=== PATIENT | female | born 1950 | race Caucasian/White ===

== ENCOUNTER 2018-12-21 07:44 | Inpatient (IN) ==
--- NOTE | 2018-12-21 08:39 | ED ---
HPI General Chief complaint: Weakness Stated complaint: weakness/loss of appetite Time Seen by Provider: 12/21/18 08:29 Source: patient Mode of arrival: ambulatory Limitations: no limitations History of Present Illness HPI narrative: This 68-year-old female is complaining of weakness and poor appetite. She was here on Monday with the same complaint. Her symptoms have been going on for at least 2 weeks. He bites and she is full and cannot eat anymore. She has had a 10 pound weight loss. She is not having pain. She does not have dysphasia. She was treated from 1979 until 2000 for breast cancer. She had 4 weeks of radiation and 4 courses of chemo. She believes she has been in remission since 2000. Was here on Monday she had a workup which included a TSH which was normal. On her laboratory studies her albumin was 2.2 and her calcium was 10.9. He had a CT scan of the head which showed multiple diffuse subcutaneous nodules around the scalp and numerous low-density lesions in the diploic space of the calvarium which could represent venous lakes versus metastatic disease. She had a CT scan of the abdomen and pelvis. She was noted to have small bilateral pleural effusions and osteolytic lesions in the left femur and left iliac bone suggestive of metastatic disease. She was given a prescription for Megace but she did not get it filled. Her symptoms have worsened. She is feeling lightheaded Related Data Home Medications Medication Instructions Recorded Confirmed atorvastatin 10 mg PO HS 12/17/18 12/21/18 Allergies Allergy/AdvReac Type Severity Reaction Status Date / Time niacin Allergy Intermediate Hives Verified 12/21/18 08:16 penicillin G Allergy Intermediate Hives Verified 12/21/18 08:16 Fish Containing Products Allergy Unknown Unknown Verified 12/21/18 08:16 Review of Systems Constitutional Reports anorexia, Reports difficulty sleeping, Reports fatigue, Reports poor appetite, Reports weakness and Reports weight loss PMF Medical History Medical History Breast cancer (Acute) High cholesterol (Acute) Surgical History Surgical History H/O mastectomy (Acute) Social History Social History Substance History: No History of Abuse Second Hand Smoke Exposure: No Smoking Status: Never smoker How Often Do You Have a Drink Containing Alcohol: Never Recent Travel in [facility] within the Last 8 Weeks: No Recent Out of Country Travel within the Last 8 Weeks: No Immunization History Tetanus Immunization: Unsure Exam Narrative Exam Narrative: GENERAL: Thin female. She arrives with a heart rate of 118 SKIN: Focused skin assessment warm/dry. There are surgical scars on the left breast. The nipple is absent HEAD: Atraumatic. Normocephalic. EYES: Pupils equal and round. No scleral icterus. No injection or drainage. ENT: No nasal bleeding or discharge. Mucous membranes dry NECK: Trachea midline. No JVD. CARDIOVASCULAR: Regular rate and rhythm. No murmur appreciated. RESPIRATORY: No accessory muscle use. Clear to auscultation. Breath sounds equal bilaterally. GASTROINTESTINAL: Abdomen soft, non-tender, nondistended. Hepatic and splenic margins not palpable. MUSCULOSKELETAL: No obvious deformities. No clubbing. No cyanosis. No edema. No tenderness no discernible swelling of the left hip or the left pelvis NEUROLOGICAL: Awake and alert. No obvious cranial nerve deficits. Motor grossly within normal limits. Normal speech. PSYCHIATRIC: Appropriate mood and affect; insight and judgment normal. Course Initial Documented Vital Signs Temperature 97.8 F 12/21/18 07:59 Pulse Rate 118 H 12/21/18 07:59 Respiratory Rate 14 12/21/18 07:59 Blood Pressure 104/61 12/21/18 07:59 Pulse Oximetry 96 12/21/18 07:59 Last Documented Vital Signs Temperature 97.8 F 12/21/18 07:59 Pulse Rate 84 12/21/18 10:10 Respiratory Rate 16 12/21/18 10:10 Blood Pressure 116/63 12/21/18 10:10 Pulse Oximetry 94 L 12/21/18 10:10 Medical Decision Making [facility] Narrative Medical decision making narrative: Patient was here Monday with similar symptoms. At that time she had CT of the head which raise the possibility of metastatic disease to this skull. She also had a CT of the abdomen and pelvis which was concerning for possible metastatic disease of the femur and pelvis. Her calcium level today is 10.7 with an albumin of 1.9. I have initiated intravenous fluids. Protein corrected calcium is 12.4 Medical Screen Exam Complete: Yes Emergency Medical Condition: Yes Differential Diagnosis Differential Diagnosis: Differential includes dehydration, electrolyte imbalance , hypercalcemia Lab Data Result diagrams: 12/21/18 08:50 12/21/18 08:50 Lab Results 12/21/18 12/21/18 12/21/18 Range/Units 08:50 08:50 08:50 CBC w Diff Auto diff final WBC 7.5 (4.0-11.0) th/mm3 RBC 3.80 L (4.00-5.30) mil/mm3 Hgb 11.0 L (11.6-15.3) gm/dL Hct 33.1 L (35.0-46.0) % MCV 87.0 (80.0-100.0) fL MCH 29.0 (27.0-34.0) pg MCHC 33.3 (32.0-36.0) % RDW 13.4 (11.6-17.2) % Plt Count 225 (150-450) th/mm3 MPV 8.4 (7.0-11.0) fL Neut % (Auto) 86.3 H (16.0-70.0) % Lymph % (Auto) 5.0 L (9.0-44.0) % [place] % (Auto) 6.4 (0.0-8.0) % Eos % (Auto) 0.6 (0.0-4.0) % Baso % (Auto) 1.7 (0.0-2.0) % Neut # (Auto) 6.5 (1.8-7.7) th/mm3 Lymph # (Auto) 0.4 L (1.0-4.8) th/mm3 [place] # (Auto) 0.5 (0.0-0.9) th/mm3 Eos # (Auto) 0.0 (0.0-0.4) th/mm3 Baso # (Auto) 0.1 (0.0-0.2) th/mm3 WBC Differential . Differential Comment . Sodium 136 (136-145) meq/L Potassium 3.3 L (3.5-5.1) meq/L Chloride 95 L (98-107) meq/L Carbon Dioxide 34.0 H (21.0-32.0) meq/L Anion Gap 7 (5-15) meq/L BUN 14 (7-18) mg/dL Creatinine 0.56 (0.50-1.00) mg/dL Estimated GFR Greater than 89 (>89) mL/min Random Glucose 102 (74-106) mg/dL Calcium 10.7 H 10.7 H (8.5-10.1) mg/dL Calcium Adj for Albumin 12.4 H* (8.5-10.1) mg/dL Magnesium 2.1 (1.5-2.5) mg/dL Total Bilirubin 0.8 (0.2-1.0) mg/dL AST 35 (15-37) U/L ALT 18 (10-53) U/L Alkaline Phosphatase 142 H (45-117) U/L Troponin I 0.02 (0.02-0.05) ng/mL Total Protein 5.6 L D (6.4-8.2) g/dL Albumin 1.9 L 1.9 L (3.4-5.0) g/dL Urine Color (Yellw/Straw) Urine Clarity (Clear) Urine pH (5.0-8.5) Ur Specific [place] (1.002-1.035) Urine Protein (Neg-Trace) mg/dL Urine Glucose (UA) (Negative) mg/dL Urine Ketones (Negative) mg/dL Urine Occult Blood (Negative) Urine Nitrate (Negative) Urine Bilirubin (Negative) Urine Urobilinogen (Less than 2) mg/dL Ur Leukocyte Esterase (Negative) Urine RBC (0-3) /hpf Ur Squamous Epith Cells (0-5) /hpf Amorphous Sediment (None) /hpf Micro UA Comment Ur Microscopic Review Urine Culture Comments 12/21/18 Range/Units 09:35 CBC w Diff WBC (4.0-11.0) th/mm3 RBC (4.00-5.30) mil/mm3 Hgb (11.6-15.3) gm/dL Hct (35.0-46.0) % MCV (80.0-100.0) fL MCH (27.0-34.0) pg MCHC (32.0-36.0) % RDW (11.6-17.2) % Plt Count (150-450) th/mm3 MPV (7.0-11.0) fL Neut % (Auto) (16.0-70.0) % Lymph % (Auto) (9.0-44.0) % [place] % (Auto) (0.0-8.0) % Eos % (Auto) (0.0-4.0) % Baso % (Auto) (0.0-2.0) % Neut # (Auto) (1.8-7.7) th/mm3 Lymph # (Auto) (1.0-4.8) th/mm3 [place] # (Auto) (0.0-0.9) th/mm3 Eos # (Auto) (0.0-0.4) th/mm3 Baso # (Auto) (0.0-0.2) th/mm3 WBC Differential Differential Comment Sodium (136-145) meq/L Potassium (3.5-5.1) meq/L Chloride (98-107) meq/L Carbon Dioxide (21.0-32.0) meq/L Anion Gap (5-15) meq/L BUN (7-18) mg/dL Creatinine (0.50-1.00) mg/dL Estimated GFR (>89) mL/min Random Glucose (74-106) mg/dL Calcium (8.5-10.1) mg/dL Calcium Adj for Albumin (8.5-10.1) mg/dL Magnesium (1.5-2.5) mg/dL Total Bilirubin (0.2-1.0) mg/dL AST (15-37) U/L ALT (10-53) U/L Alkaline Phosphatase (45-117) U/L Troponin I (0.02-0.05) ng/mL Total Protein (6.4-8.2) g/dL Albumin (3.4-5.0) g/dL Urine Color Yellow (Yellw/Straw) Urine Clarity Clear (Clear) Urine pH 6.0 (5.0-8.5) Ur Specific [place] 1.025 (1.002-1.035) Urine Protein Negative (Neg-Trace) mg/dL Urine Glucose (UA) Negative (Negative) mg/dL Urine Ketones 15 H (Negative) mg/dL Urine Occult Blood Negative (Negative) Urine Nitrate Negative (Negative) Urine Bilirubin Small H (Negative) Urine Urobilinogen 4.0 H (Less than 2) mg/dL Ur Leukocyte Esterase Negative (Negative) Urine RBC 0-3 (0-3) /hpf Ur Squamous Epith Cells 0-5 (0-5) /hpf Amorphous Sediment Few H (None) /hpf Micro UA Comment Cath-culture not ind Ur Microscopic Review Microscopic reviewed Urine Culture Comments Cath-cult not ind Imaging Data Radiologist's impression: Chest X-Ray 12/21/18 09:54 CONCLUSION: No new or significant changes with the overall appearance of the heart or lungs compared to the prior study. Discharge Plan Discharge Disposition Patient Disposition: ED Admit(ED Internal Use Only) Discharge Condition Condition: Fair Discharge Order Discharge Orders: ED Use Only Admit Order (Routine); Ordered 12/21/18 Ordered By: Jared Felix Discharge Details Diagnosis: Hypercalcemia Physicians Team ED Provider: Jared Felix Primary Care Provider: UNKNOWN, Attending Provider: Kingsley Goff Other Providers: Laurita Lares Discharge Interventions Interventions: Vital Signs Last Done: 12/21/18 10:10 ED Discharge Assessment Last Done: 12/21/18 10:45 Status ED Status: Admitted Patient
[2018-12-21] MEDS ORDERED: Sod Chloride 0.9% Inj 1,000 ML IV.CONT SCH (08:45)
[2018-12-21 09:06] LABS: Baso # (Auto) 0.1 th/mm3 (0.0-0.2); Baso % (Auto) 1.7 % (0.0-2.0); Eos % (Auto) 0.6 % (0.0-4.0); Hematocrit 33.1 % (35.0-46.0); Lymph # (Auto) 0.4 th/mm3 (1.0-4.8); Mean Corpuscular HGB Conc 33.3 % (32.0-36.0); Mean Platelet Volume 8.4 fL (7.0-11.0); Mono # (Auto) 0.5 th/mm3 (0.0-0.9); Mono % (Auto) 6.4 % (0.0-8.0); Neut # (Auto) 6.5 th/mm3 (1.8-7.7); Neut % (Auto) 86.3 % (16.0-70.0); Platelet Count 225 th/mm3 (150-450); Red Cell Distribution Width 13.4 % (11.6-17.2); White Blood Count 7.5 th/mm3 (4.0-11.0)
[2018-12-21 09:07] LABS: Chloride 95 meq/L (98-107); Potassium 3.3 meq/L (3.5-5.1); Sodium 136 meq/L (136-145)
[2018-12-21 09:10] LABS: Calcium 10.7 mg/dL (8.5-10.1)
[2018-12-21 09:11] LABS: Albumin 1.9 g/dL (3.4-5.0); Anion Gap 7 meq/L (5-15); Blood Urea Nitrogen 14 mg/dL (7-18); Glucose,Random 102 mg/dL (74-106); Magnesium 2.1 mg/dL (1.5-2.5)
[2018-12-21 09:14] LABS: Alanine Aminotransferase 18 U/L (10-53); Aspartate Aminotransferase 35 U/L (15-37); Glomerular Filtration Rate Greater Than 89 mL/min (>89)
[2018-12-21 09:16] LABS: Total Protein 5.6 g/dL (6.4-8.2)
[2018-12-21 09:17] LABS: Alkaline Phosphatase 142 U/L (45-117)
[2018-12-21 09:19] LABS: Troponin I 0.02 ng/mL (0.02-0.05)
[2018-12-21 09:43] LABS: Bilirubin,Urine Small (Negative); Glucose,Urine (UA) Negative (Negative); Leukocyte Esterase,Urine Negative (Negative); Nitrite,Urine Negative (Negative); Specific Gravity,Urine 1.025 (1.002-1.035)
[2018-12-21 09:48] LABS: Clarity,Urine Clear (Clear); Color,Urine Yellow (Yellw/Straw)
[2018-12-21 09:50] LABS: Amorphous Sediment,Urine Few /hpf; RBC,Urine 0-3 /hpf (0-3); Squamous Epithelial Cell,Urine 0-5 /hpf (0-5)
[2018-12-21 10:07] LABS: Albumin 1.9 g/dL (3.4-5.0); Calcium 10.7 mg/dL (8.5-10.1)
[2018-12-21 10:08] LABS: Calcium-Albumin Corrected 12.4 mg/dL (8.5-10.1)
[2018-12-21] MEDS: Sod Chloride 0.9% Inj 1,000 ML IV.CONT SCH ×4 (10:10→20:53)
--- NOTE | 2018-12-21 10:16 | XR ---
EXAM DATE: 12/21/2018 10:11 AM EST AGE/SEX: 68 years / Female INDICATIONS: Loss of appetite, general weakness, light headedness, and weight loss. CLINICAL DATA: This is the patient's initial encounter. Patient reports that signs and symptoms have been present for 2 weeks and indicates a pain score of 0/10. MEDICAL/SURGICAL HISTORY: Carcinoma, breast. Pleural effusions. Mastectomy, left. COMPARISON: [facility], CHEST 2V AP&LAT, 12/17/2018. . FINDINGS: There has been no new or significant changes with the overall appearance of the heart or lungs compar ed to the prior exam. There continue to be stable chronic changes in both upper lungs. No new or acut e infiltrates are demonstrated. There continues to be hyperaeration of both lung yan. No pleural e ffusions. Surgical clips in the left axillary area. CONCLUSION: No new or significant changes with the overall appearance of the heart or lungs compared to the prior study. Electronically signed by: Ramy Moffett MD Board Certified Radiologist 12/21/2018 10:14 AM EST
[2018-12-21] MEDS ORDERED: Acetaminophen 325 MG Tablet PO PRN (10:43)
--- NOTE | 2018-12-21 12:38 | P.HPIM ---
History of Present Illness Primary Care Physician: UNKNOWN Chief Complaint: Weakness History of Present Illness: Mrs. Schmid is a 68-year-old female. She has come into the hospital secondary to an acute onset of weakness. Previously she had visited the hospital secondary to difficulty sleeping and weight loss. Lytic lesions were seen on imaging which are worrisome for metastatic disease. She has a prior history of breast cancer so recurrence of breast cancer with metastasis would be a primary concern. She describes weakness as lower extremity weakness. She was unable to hold her own weight up due to her muscle weakness and dysfunction. She denies any diarrhea. She denies fevers. She denies vomiting. No abdominal cramping. No complaints of joint pains or bone pain. Thus far no cardiac arrhythmia. No other complaints today. Inpatient Certification Inpatient Certification: I certify that the inpatient services were ordered in accordance with Medicare regulations governing the order. This includes certification that hospital inpatient services are reasonable and necessary and in the case of services not specified as inpatient-only under 42 CFR 419.22(n), that they are appropriately provided as inpatient services in accordance to with the 2-midnight benchmark under 43 CFR 412.3(e) Estimated Total Length of Stay (Days): 4 Plans for Post Hospital Care: Home Review of Systems Constitutional: No fevers, no chills no night sweats, no fatigue, weakness Eyes: No eye pain, no blurry vision, no loss of vision ENT: No sore throat, no ear pain, no rhinorrhea Cardiovascular: No chest pain, no tachycardia, no palpitations, no syncope Respiratory: No wheezing, no cough, no shortness of breath Gastrointestinal: No abdominal pain, no black tarry stools, no bright red blood per rectum, no vomiting, no diarrhea Musculoskeletal: No joint pain, no muscle cramps, no stiffness Integumentary: No rash, no ulcers, no drainage Neurologic: No sensory loss, no loss of motor function, no dizziness Psychiatric: No behavioral changes, no hallucinations, no suicidal ideations [facility] Medical History Medical History Breast cancer (Acute) High cholesterol (Acute) Surgical History Surgical History H/O mastectomy (Acute) Family History Family History Other Osteoarthritis Social History Social History Substance History: No History of Abuse Second Hand Smoke Exposure: No Smoking Status: Never smoker How Often Do You Have a Drink Containing Alcohol: Never Recent Travel in [facility] within the Last 8 Weeks: No Recent Out of Country Travel within the Last 8 Weeks: No Immunization History Tetanus Immunization: Unsure Medications and Allergies Allergies Allergy/AdvReac Type Severity Reaction Status Date / Time niacin Allergy Intermediate Hives Verified 12/21/18 08:16 penicillin G Allergy Intermediate Hives Verified 12/21/18 08:16 Fish Containing Products Allergy Unknown Unknown Verified 12/21/18 08:16 Home Medications Medication Instructions Recorded Confirmed Type atorvastatin 10 mg PO HS 12/17/18 12/21/18 History Active Medications: Active Medications Acetaminophen (Tylenol) 650 mg PO Q4H PRN PRN Reason: Temp > 100.4 Hydrocodone Bitart/Acetaminophen ([place] 10/325) 1 tab PO Q4H PRN PRN Reason: Pain 7 to 10 Hydrocodone Bitart/Acetaminophen ([place] 5/325) 1 tab PO Q4H PRN PRN Reason: Pain 3 to 6 Al Hydroxide/Mg Hydroxide (Milk Of Magnesia Liq) 30 ml PO Q12H PRN PRN Reason: Mild Constipation Sodium Chloride (Ns Inj) 1,000 mls @ 400 mls/hr IV.CONT .Q2H30M JESSICA Last Infusion: 12/21/18 09:45 Dose: Infused Sodium Chloride (Ns Inj) 1,000 mls @ 250 mls/hr IV.CONT .Q4H JESSICA Last Admin: 12/21/18 10:10 Dose: 250 mls/hr Sodium Chloride (Ns Inj) 1,000 mls @ 100 mls/hr IV.CONT .Q10H JESSICA Last Admin: 12/21/18 12:34 Dose: 100 mls/hr Ondansetron HCl (Zofran Inj) 4 mg IV.PUSH Q6H PRN PRN Reason: NAUSEA OR VOMITING Sodium Chloride (Ns Flush) 2 ml IV.FLUSH PRN PRN PRN Reason: FLUSH AFTER USING IV ACCESS Sodium Chloride (Ns Flush) 2 ml IV.FLUSH BID JESSICA Sodium Chloride (Ns Flush) 2 ml IV.FLUSH PRN PRN PRN Reason: FLUSH AFTER USING IV ACCESS Physical Exam Vital signs: Vital Signs 12/21/18 07:59 12/21/18 08:50 12/21/18 10:10 Temperature 97.8 F Pulse Rate 118 H 78 84 Respiratory Rate 14 16 Blood Pressure 104/61 116/63 Pulse Oximetry 96 95 94 L Intake & Output 12/20/18 12/21/18 12/21/18 18:59 06:59 18:59 Intake Total 1000 / 1000 Balance 1000 / 1000 Weight 57.7 kg Intake: IV 1000 / 1000 NS Inj 1,000 ML @ 400 mls/hr IV 1000 / 1000 .CONT .Q2H30M JESSICA Rx#: [id number] Narrative: GENERAL: NAD, A&Ox3 HEAD: Normocephalic. NECK: Supple, trachea midline. No lymphadenopathy. EYES: No scleral icterus. No injection or drainage. CARDIOVASCULAR: Regular rate and rhythm without murmurs, gallops, or rubs. RESPIRATORY: Breath sounds equal bilaterally. No accessory muscle use. GASTROINTESTINAL: Abdomen soft, non-tender, nondistended. MUSCULOSKELETAL: No cyanosis, or edema. SKIN: Warm and dry. Nodularity at scalp. NEURO: No focal neurological deficits. Urinary Catheter Management Straight: Cath placed during this visit: yes Reason for continuing: Not indwelling catheter Insertion date: 12/21/18 Insertion time: 09:35 Results Labs CBC & Chem 7: 12/21/18 08:50 12/21/18 08:50 Imaging Impressions Chest X-Ray 12/21/18 09:54 CONCLUSION: No new or significant changes with the overall appearance of the heart or lungs compared to the prior study. Caprini VTE Risk Assessment Caprini VTE Risk Assessment: No/Low Risk (score <= 1) Caprini Risk Assessment Model: Point Value = 1 Point Value = 2 Point Value = 3 Point Value = 5 Age 41-60 Minor surgery BMI > 25 kg/m2 Swollen legs Varicose veins or History of unexplained or recurrent spontaneous Oral contraceptives or hormone replacement Sepsis (< 1 month) Serious lung disease, including pneumonia (< 1 month) Abnormal pulmonary function Acute myocardial infarction Congestive heart failure (< 1 month) History of inflammatory bowel disease Medical patient at bed rest Age 61-74 Arthroscopic surgery Major open surgery (> 45 min) Laparoscopic surgery (> 45 min) Malignancy Confined to bed (> 72 hours) Immobilizing plaster cast Central venous access Age >= 75 History of VTE Family history of VTE Factor V Leiden Prothrombin [id number] Lupus anticoagulant Anticardiolipin antibodies Elevated serum homocysteine Heparin-induced thrombocytopenia Other congenital or acquired thrombophilia Stroke (< 1 month) Elective arthroplasty Hip, pelvis, or leg fracture Acute spinal cord injury (< 1 month) Prophylaxis Regimen: Total Risk Factor Score Risk Level Prophylaxis Regimen 0-1 Low Early ambulation 2 Moderate Order ONE of the following: *Sequential Compression Device (SCD) *Heparin 5000 units SQ BID 3-4 Higher Order ONE of the following medications: *Heparin 5000 units SQ TID *Enoxaparin/Lovenox 40 mg SQ daily (WT < 150 kg, CrCl > 30 mL/min) *Enoxaparin/Lovenox 30 mg SQ daily (WT < 150 kg, CrCl > 10-29 mL/min) *Enoxaparin/Lovenox 30 mg SQ BID (WT < 150 kg, CrCl > 30 mL/min) AND/OR *Sequential Compression Device (SCD) 5 or more Highest Order ONE of the following medications: *Heparin 5000 units SQ TID (Preferred with Epidurals) *Enoxaparin/Lovenox 40 mg SQ daily (WT < 150 kg, CrCl > 30 mL/min) *Enoxaparin/Lovenox 30 mg SQ daily (WT < 150 kg, CrCl > 10-29 mL/min) *Enoxaparin/Lovenox 30 mg SQ BID (WT < 150 kg, CrCl > 30 mL/min) AND *Sequential Compression Device (SCD) Assessment and Plan Plan 68-year-old female admitted secondary to weakness with finding of severe hypercalcemia Severe hypercalcemia Suspected to be related to metastatic disease Check PTH level IV hydration Follow calcium levels Follow on telemetry Lytic lesions pelvis Lytic lesion at left femur Lytic lesions of scalp History of breast cancer New concerns for recurrence of breast cancer with metastasis Patient was to follow-up with oncology as an outpatient Further workup needed Oncology consult Hyperlipidemia Hold present treatment Follow as an outpatient DVT prophylaxis SCDs H&P: Quality VTE Deep Vein Thrombosis/Pulmonary Embolism Present on Admission: No
--- NOTE | 2018-12-21 14:53 | ECG ---
Date Performed: 12/21/2018 Time Performed: 10:08:28 PTAGE: 68 years EKG: Sinus rhythm NORMAL ECG Since the PREVIOUS TRACING , no significant change noted PREVIOUS TRACIN12/17/2018 08.17 DOCTOR: Mayela Cruz Interpretating Date/Time 12/21/2018 14:46:08
--- NOTE | 2018-12-21 20:00 | CT ---
EXAM DATE: 12/21/2018 7:47 PM EST AGE/SEX: 68 years / Female INDICATIONS: Loss of appetite x 2 weeks with weight loss. Nodules on left chest wall and right breas t. Evaluate for mass. CLINICAL DATA: This is the patient's initial encounter. Patient reports that signs and symptoms have been present for 2 weeks and indicates a pain score of 0/10. MEDICAL/SURGICAL HISTORY: Carcinoma, breast. . Mastectomy. RADIATION DOSE: 6.44 CTDI (mGy) COMPARISON: [facility], CHEST 1V SINGLE AP, 12/21/2018. . TECHNIQUE: Multiple contiguous axial images were obtained through the chest without contrast. Image s were obtained in suspended respiration using multiple row detector helical technique. Using automa yossi exposure control and adjustment of the mA and/or kV according to patient size, radiation dose was kept as low as reasonably achievable to obtain optimal diagnostic quality images. DICOM format imag e data is available electronically for review and comparison. FINDINGS: Approximate 2.4 cm right upper lobe mass is present concerning for underlying malignancy. There is a tiny 5 mm nodule left upper lobe anteriorly nonspecific could be benign. Tiny bilateral pleural effus ions are seen. No appreciable pathological adenopathy is seen within the mediastinum. CONCLUSION: Right upper lobe mass concerning for malignancy and the left upper lobe nodule is nonspe cific. Electronically signed by: Marco Chaves MD Board Certified Radiologist 12/21/2018 7:58 PM EST
--- NOTE | 2018-12-21 20:43 | MB ---
cc: Laurita Lares MD, Daniel C MD DATE: 12/21/2018 REFERRING PHYSICIAN: Kingsley Goff MD CHIEF COMPLAINT: Dr. Goff requests a consultation for Mrs. Schmid with hypercalcemia suspicious for metastatic breast cancer. HISTORY OF PRESENT ILLNESS: Ms. Schmid is a 68-year-old woman, well known patient to Dr. Matheus Kebede. She was initially diagnosed and treated for her high risk left breast cancer in a [facility]. She came down and followed up with Dr. Kebede at the [facility] and subsequently followed Dr. Kebede at his private practice. She is discharged from Dr. Kebede's clinic with no evidence of recurrent disease after 10 years. She was in her usual state of health when several months ago, developed progressive symptoms of weakness, decreased appetite, and weight loss. She denies any chest pain or shortness of breath. She denies any back pain. No headaches. No vision changes. She has no fevers, chills, night sweats. She has had evaluation on an ER visit on 12/17/2018. CT scan of the abdomen and pelvis shows osteolytic lesions in the left occipital femur and left iliac bone suggestive of bony metastatic disease. She had bilateral pleural effusion. CT scan of the head had numerous low density lesions of the calvarium. There is diffuse multiple subcutaneous nodules about the scalp. Her last screening mammogram of the residual right breast on 08/16/2017 was negative. Her bone density from 08/24/2015 was normal. She comes into the emergency room with feeling of weakness and poor appetite. Laboratory evaluation shows a white blood cell count of 7.5, hemoglobin 11.0, platelet count of 225. Renal function is normal. Calcium is 10.7 and calcium adjusted for albumin of 12.4. Her albumin is 1.9. PTH intact is low at 6.4. Hypercalcemia of malignancy is suspected. PAST MEDICAL HISTORY: ER positive left breast cancer, hypercholesterolemia, hypercalcemia, unintentional weight loss. PAST SURGICAL HISTORY: Left mastectomy. FAMILY HISTORY: Mother of Alzheimer's age 76. SOCIAL HISTORY: She is a never smoker. Denies any alcohol or illicit drug use. She is and lives with her , who is in good health. ALLERGIES: NIACIN, PENICILLIN, AND FISH-CONTAINING PRODUCTS. MEDICATIONS: 1. Tylenol p.r.n. 2. [place] p.r.n. 3. Zofran p.r.n. PHYSICAL EXAMINATION: VITAL SIGNS: Temperature 98.1, heart rate 80, respiratory rate 20, blood pressure 127/72, saturation 97%. GENERAL: Mrs. Schmid is a well-developed, slender, cachectic-appearing woman, who looks chronically ill. She has bitemporal wasting. She looks tired and weak. HEENT: Her pupils are round, reactive to light and accommodation. Oropharynx is clear. NECK: Supple. LUNGS: Clear anteriorly. CARDIOVASCULAR: Reveals normal rate and rhythm. GASTROINTESTINAL: Benign. No organomegaly. LOWER EXTREMITIES: No edema. NEUROLOGIC: Reveals nonfocal. BREASTS: Right breast is significant for a soft nodule at the 11 o'clock position approximately 2 cm from the nipple and a second nodule more prominent soft tissue mass at the 1 o'clock position. Left mastectomy/central lumpectomy shows a prominent left chest wall nodule that is mobile. She reports that this is due to trauma. LABORATORY DATA: As described above. ASSESSMENT AND PLAN: Mrs. Schmid is a 68-year-old woman with a history of breast cancer, has been disease free for over 10 years. She presents with progressive weakness, unintentional weight loss, and fatigue. She is found to have hypercalcemia. She is suspected to have hypercalcemia associated with malignancy. She has had multiple lytic lesions on CT scan of the head and CT scan of the abdomen and pelvis. I had a lengthy discussion with Mrs. Schmid about her history of breast cancer and a concern for recurrence of her breast cancer. I need to confirm that the lytic lesions are indeed breast cancer in nature and not a second primary. I will obtain a CT scan of the chest to see if there are other sites to biopsy. Consideration for biopsy is the right breast nodule in the upper part of the breast. She believes that these lesions are new. She has not noted them before. No axillary adenopathy. We discussed possible biopsy of the bony lesions. She has hypercalcemia associated with malignancy. She would benefit from pamidronate. If biopsy is attempted in patient we can follow up the results on an outpatient basis. I defer to Mrs. Schmid further recommendations depending on the findings of a diagnostic biopsy. Her questions were answered to her satisfaction. I will plan to see her back in clinic for follow up. In the meantime pamidronate will be ordered. Her potassium will be replaced. MD GUZMAN Cardenas/agustina , 06:17 PM , 06:29 PM
[2018-12-21] MEDS ORDERED: Pamidronate Inj 60 MG in Sodium Chlor 0.9% Inj 500 ML IV.SIG ONE (22:00)
[2018-12-22] MEDS: Sod Chloride 0.9% Inj 1,000 ML IV.CONT SCH ×4 (03:08→22:36)
[2018-12-22 06:41] LABS: Eos % (Auto) 0.1 % (0.0-4.0); Hematocrit 29.6 % (35.0-46.0); Hemoglobin 9.8 gm/dL (11.6-15.3); Lymph # (Auto) 0.5 th/mm3 (1.0-4.8); Lymph % (Auto) 6.4 % (9.0-44.0); Mean Corpuscular HGB Conc 32.9 % (32.0-36.0); Mean Corpuscular Hemoglobin 28.5 pg (27.0-34.0); Mean Corpuscular Volume 86.6 fL (80.0-100.0); Mean Platelet Volume 8.6 fL (7.0-11.0); Mono # (Auto) 0.4 th/mm3 (0.0-0.9); Mono % (Auto) 5.6 % (0.0-8.0); Neut # (Auto) 6.3 th/mm3 (1.8-7.7); Neut % (Auto) 87.9 % (16.0-70.0); Platelet Count 190 th/mm3 (150-450); Red Blood Count 3.42 mil/mm3 (4.00-5.30); White Blood Count 7.3 th/mm3 (4.0-11.0)
[2018-12-22 06:58] LABS: Alanine Aminotransferase 16 U/L (10-53); Albumin 1.7 g/dL (3.4-5.0); Anion Gap 7 meq/L (5-15); Aspartate Aminotransferase 33 U/L (15-37); Blood Urea Nitrogen 12 mg/dL (7-18); Calcium 9.9 mg/dL (8.5-10.1); Carbon Dioxide 32.5 meq/L (21.0-32.0); Chloride 100 meq/L (98-107); Glomerular Filtration Rate Greater Than 89 mL/min (>89); Glucose,Random 102 mg/dL (74-106); Sodium 139 meq/L (136-145)
[2018-12-22 06:59] LABS: Alkaline Phosphatase 127 U/L (45-117)
[2018-12-22 07:11] LABS: Potassium 2.6 meq/L (3.5-5.1)
--- NOTE | 2018-12-22 11:45 | P.PNIM ---
Subjective Interval history: Calcium level has improved. Albumin corrected calcium is still approximately 10-1/2 so treatment will be continued. Patient has no complaints, no chest pain, though nausea, no diarrhea, no cramping. Physical Exam Vital signs: Vital Signs 12/21/18 16:00 12/21/18 20:00 12/22/18 00:00 Temperature 98.1 F 98.7 F 98.4 F Pulse Rate 80 95 H 79 Respiratory Rate 20 20 20 Blood Pressure 127/72 119/63 132/64 Pulse Oximetry 97 93 L 93 L 12/22/18 04:00 12/22/18 08:08 Temperature 97.4 F L Pulse Rate 90 95 H Respiratory Rate 20 Blood Pressure 131/68 Pulse Oximetry 94 L Intake & Output 12/21/18 12/22/18 12/22/18 18:59 06:59 18:59 Intake Total 2240 / 2240 520 / 520 Output Total 1100 / 1100 800 / 800 Balance 1140 / 1140 -280 / -280 Weight 57.8 kg 57.3 kg Intake: IV 1999 520 / 520 NS Inj 1,000 ML @ 250 mls/hr IV 1999 / 1999 .CONT .Q4H JESSICA Rx#:[id number] Aredia Inj 60 MG In NS Inj 500 520 / 520 ML @ 130 mls/hr IV.SIG ONCE ONE Rx#:[id number] Oral 240 / 240 0 / 0 Output: Urine 1100 / 1100 800 / 800 Other: # Voids 1 Narrative: GENERAL: NAD, A&Ox3 HEAD: Normocephalic. NECK: Supple, trachea midline. No lymphadenopathy. EYES: No scleral icterus. No injection or drainage. CARDIOVASCULAR: Regular rate and rhythm without murmurs, gallops, or rubs. RESPIRATORY: Breath sounds equal bilaterally. No accessory muscle use. GASTROINTESTINAL: Abdomen soft, non-tender, nondistended. MUSCULOSKELETAL: No cyanosis, or edema. SKIN: Warm and dry. Nodularity at scalp. NEURO: No focal neurological deficits. Urinary Catheter Management Straight: Cath placed during this visit: yes Reason for continuing: Not indwelling catheter Insertion date: 12/21/18 Insertion time: 09:35 Results Labs CBC & Chem 7: 12/22/18 05:57 12/22/18 05:57 Imaging Imaging: Impressions Chest CT 12/21/18 00:00 CONCLUSION: Right upper lobe mass concerning for malignancy and the left upper lobe nodule is nonspecific. Assessment and Plan Plan 68-year-old female admitted secondary to weakness with finding of severe hypercalcemia Continue IV hydration. Continue monitoring calcium levels. Bone biopsy plan. PTH is within normal limits. Severe hypercalcemia Suspected to be related to metastatic disease Check PTH level IV hydration Follow calcium levels Follow on telemetry Lytic lesions pelvis Lytic lesion at left femur Lytic lesions of scalp History of breast cancer New concerns for recurrence of breast cancer with metastasis Bone biopsy planned Patient was to follow-up with oncology as an outpatient Further workup needed Oncology consult Hyperlipidemia Hold present treatment Follow as an outpatient DVT prophylaxis SCDs Progress Note: Quality VTE Deep Vein Thrombosis/Pulmonary Embolism Present on Admission: No
[2018-12-22] MEDS: Potassium Chloride 10 MEQ ER Capsule PO SCH (22:33)
[2018-12-23 08:08] LABS: Baso % (Auto) 0.5 % (0.0-2.0); Eos % (Auto) 0.2 % (0.0-4.0); Hematocrit 30.7 % (35.0-46.0); Hemoglobin 10.3 gm/dL (11.6-15.3); Lymph # (Auto) 0.5 th/mm3 (1.0-4.8); Lymph % (Auto) 6.6 % (9.0-44.0); Mean Corpuscular HGB Conc 33.5 % (32.0-36.0); Mean Corpuscular Hemoglobin 29.5 pg (27.0-34.0); Mean Corpuscular Volume 88.2 fL (80.0-100.0); Mean Platelet Volume 9.2 fL (7.0-11.0); Mono # (Auto) 0.4 th/mm3 (0.0-0.9); Mono % (Auto) 5.3 % (0.0-8.0); Neut # (Auto) 7.3 th/mm3 (1.8-7.7); Neut % (Auto) 87.4 % (16.0-70.0); Platelet Count 180 th/mm3 (150-450); Red Blood Count 3.48 mil/mm3 (4.00-5.30); Red Cell Distribution Width 13.2 % (11.6-17.2); White Blood Count 8.2 th/mm3 (4.0-11.0)
[2018-12-23] MEDS: Potassium Chloride 10 MEQ ER Capsule PO SCH ×2 (08:23→21:32)
[2018-12-23 08:34] LABS: Alanine Aminotransferase 15 U/L (10-53); Albumin 1.7 g/dL (3.4-5.0); Alkaline Phosphatase 121 U/L (45-117); Anion Gap 9 meq/L (5-15); Aspartate Aminotransferase 34 U/L (15-37); Blood Urea Nitrogen 11 mg/dL (7-18); Calcium 8.9 mg/dL (8.5-10.1); Carbon Dioxide 29.4 meq/L (21.0-32.0); Chloride 102 meq/L (98-107); Glomerular Filtration Rate Greater Than 89 mL/min (>89); Glucose,Random 84 mg/dL (74-106); Sodium 140 meq/L (136-145); Total Protein 4.8 g/dL (6.4-8.2)
--- NOTE | 2018-12-23 10:43 | P.DIET ---
Nutritional Evaluation Type of nutrition evaluation: initial Nutrition screening: Weight Loss > 10 lbs Objective - Diagnosis hypercalcemia - Objective Body Mass Index: 20.9 [place]le body weight: 57 kg (125 lb) % IBW: 100 Body Weight Used for Calculations: Actual Energy Needs - Lower Range (kCal/kg): 30 Energy Needs - Upper Range (kCal/kg): 35 Lower Limit kCal/kg (kCals): 1,710 Upper Limit kCal/kg (kCals): 1,995 Lower Limit Protein Factor (Grams per Kg): 1.0 Upper Limit Protein Factor (Grams per Kg): 1.3 Lower Protein Needs (Protein): 57 Upper Protein Needs (Protein): 74 Dietitian Reviewed in Medical Record: Current diet, Curent medications, Intake & Output, Labs, Medical history Diet Order: regular Oral Diet Intake Amount: Fair 50-75% Objective Comments: PMH; breast cancer Labs; (12/22) K 3.0, Cr. 0.41 Medications; reviewed Assessment Assessment: Weight loss screen; Pt presents to ED with ongoing weakness and poor appetite x1 week and is currently at nutritional risk related to reported 10# recent unplanned weight loss. Pt suspected to have possible metastatic disease. She is currently ordered for regular diet with PO intake at about 50%. Will send Ensure Enlive supplement TID in efforts to support PO intake and minimize further weight loss. Labs and medications reviewed, will continue to monitor PO intake, supplement acceptance and clinical course. Recommendations: 1. Continue with regular diet and encourage PO intake 2. Ensure Enlive supplement TID Dietitian to Monitor: Lab values, Supplement acceptance, Intake & Output, Diet tolerance, PO Intake, Medical course
[2018-12-23] MEDS: Sod Chloride 0.9% Inj 1,000 ML IV.CONT SCH (11:51)
--- NOTE | 2018-12-23 16:38 | P.PNIM ---
Subjective Interval history: Continued improvement in calcium levels. Current levels 8.9. Pending bone marrow biopsy. Physical Exam Vital signs: Vital Signs 12/22/18 17:04 12/22/18 20:00 12/23/18 00:00 Temperature 98.0 F 98.1 F Pulse Rate 86 74 80 Respiratory Rate 16 18 Blood Pressure 129/60 129/60 Pulse Oximetry 95 91 L 12/23/18 04:00 12/23/18 08:00 12/23/18 08:04 Temperature 98.3 F 97.4 F L Pulse Rate 84 80 82 Respiratory Rate 16 20 Blood Pressure 132/62 140/67 Pulse Oximetry 94 L 96 12/23/18 12:00 Temperature 96.3 F L Pulse Rate 93 H Respiratory Rate 20 Blood Pressure 144/65 H Pulse Oximetry 94 L Intake & Output 12/22/18 12/23/18 12/23/18 18:59 06:59 18:59 Intake Total 600 / 600 1000 / 1000 1000 / 1000 Balance 600 / 600 1000 / 1000 1000 / 1000 Weight 57 kg Intake: IV 1000 / 1000 1000 / 1000 NS Inj 1,000 ML @ 70 mls/hr IV. 1000 / 1000 1000 / 1000 CONT .[id number] JESSICA Rx#: [id number] Oral 600 / 600 Other: # Voids 3 1 Narrative: GENERAL: NAD, A&Ox3 HEAD: Normocephalic. NECK: Supple, trachea midline. No lymphadenopathy. EYES: No scleral icterus. No injection or drainage. CARDIOVASCULAR: Regular rate and rhythm without murmurs, gallops, or rubs. RESPIRATORY: Breath sounds equal bilaterally. No accessory muscle use. GASTROINTESTINAL: Abdomen soft, non-tender, nondistended. MUSCULOSKELETAL: No cyanosis, or edema. SKIN: Warm and dry. Nodularity at scalp. NEURO: No focal neurological deficits. Urinary Catheter Management Straight: Cath placed during this visit: yes Reason for continuing: Not indwelling catheter Insertion date: 12/21/18 Insertion time: 09:35 Results Labs CBC & Chem 7: 12/23/18 06:57 12/23/18 06:57 Assessment and Plan Plan 68-year-old female admitted secondary to weakness with finding of severe hypercalcemia Bone marrow biopsy pending. As calcium has improved, discontinue IV hydration for now monitor for stability. Continue monitoring calcium levels. Severe hypercalcemia Suspected to be related to metastatic disease PTH within normal limits IV hydration Follow calcium levels Follow on telemetry Lytic lesions pelvis Lytic lesion at left femur Lytic lesions of scalp History of breast cancer New concerns for recurrence of breast cancer with metastasis Bone biopsy planned Patient was to follow-up with oncology as an outpatient Further workup needed Oncology consult Hyperlipidemia Hold present treatment Follow as an outpatient DVT prophylaxis SCDs Progress Note: Quality VTE Deep Vein Thrombosis/Pulmonary Embolism Present on Admission: No
[2018-12-24 06:30] LABS: Chloride 103 meq/L (98-107); Potassium 3.1 meq/L (3.5-5.1); Sodium 141 meq/L (136-145)
[2018-12-24 06:32] LABS: Eos % (Auto) 0.1 % (0.0-4.0); Hematocrit 31.7 % (35.0-46.0); Hemoglobin 10.5 gm/dL (11.6-15.3); Lymph # (Auto) 0.6 th/mm3 (1.0-4.8); Lymph % (Auto) 7.4 % (9.0-44.0); Mean Corpuscular HGB Conc 33.3 % (32.0-36.0); Mean Corpuscular Hemoglobin 29.1 pg (27.0-34.0); Mean Corpuscular Volume 87.6 fL (80.0-100.0); Mean Platelet Volume 9.1 fL (7.0-11.0); Mono # (Auto) 0.4 th/mm3 (0.0-0.9); Mono % (Auto) 5.1 % (0.0-8.0); Neut # (Auto) 7.1 th/mm3 (1.8-7.7); Neut % (Auto) 87.4 % (16.0-70.0); Platelet Count 165 th/mm3 (150-450); Red Blood Count 3.62 mil/mm3 (4.00-5.30); Red Cell Distribution Width 13.3 % (11.6-17.2); White Blood Count 8.1 th/mm3 (4.0-11.0)
[2018-12-24 06:43] LABS: Albumin 1.7 g/dL (3.4-5.0); Calcium 8.7 mg/dL (8.5-10.1)
[2018-12-24 06:44] LABS: Anion Gap 11 meq/L (5-15); Blood Urea Nitrogen 11 mg/dL (7-18); Carbon Dioxide 27.5 meq/L (21.0-32.0); Glucose,Random 78 mg/dL (74-106)
[2018-12-24 06:47] LABS: Alanine Aminotransferase 14 U/L (10-53); Aspartate Aminotransferase 37 U/L (15-37); Glomerular Filtration Rate Greater Than 89 mL/min (>89)
[2018-12-24 06:49] LABS: Alkaline Phosphatase 124 U/L (45-117)
[2018-12-24] MEDS: Potassium Chloride 10 MEQ ER Capsule PO SCH ×2 (08:33→20:54)
[2018-12-24 09:52] LABS: INR 1.1 Ratio; Prothrombin Time 11.1 sec (9.8-11.6)
--- NOTE | 2018-12-24 12:00 | P.PNIM ---
Subjective Interval history: Plan for bone biopsy tomorrow. Calcium levels have remained stable despite stopping IV fluids yesterday. No new complaints from this patient. Physical Exam Vital signs: Vital Signs 12/23/18 12:00 12/23/18 16:00 12/23/18 20:00 Temperature 96.3 F L 97.3 F L 98.9 F Pulse Rate 93 H 87 72 Respiratory Rate 20 20 18 Blood Pressure 144/65 H 134/73 133/66 Pulse Oximetry 94 L 94 L 91 L 12/24/18 00:00 12/24/18 08:00 Temperature 98.9 F 98.2 F Pulse Rate 85 83 Respiratory Rate 16 20 Blood Pressure 133/67 139/73 Pulse Oximetry 92 L 94 L Intake & Output 12/23/18 12/24/18 12/24/18 18:59 06:59 18:59 Intake Total 1370 / 1370 Balance 1370 / 1370 Weight 57.4 kg Intake: IV 1070 / 1070 NS Inj 1,000 ML @ 70 mls/hr IV. 1070 / 1070 CONT .[id number] JESSICA Rx#: [id number] Oral 300 / 300 Other: # Voids 1 # Urine Diapers 1 Narrative: GENERAL: NAD, A&Ox3 HEAD: Normocephalic. NECK: Supple, trachea midline. No lymphadenopathy. EYES: No scleral icterus. No injection or drainage. CARDIOVASCULAR: Regular rate and rhythm without murmurs, gallops, or rubs. RESPIRATORY: Breath sounds equal bilaterally. No accessory muscle use. GASTROINTESTINAL: Abdomen soft, non-tender, nondistended. MUSCULOSKELETAL: No cyanosis, or edema. SKIN: Warm and dry. Nodularity at scalp. NEURO: No focal neurological deficits. Urinary Catheter Management Straight: Cath placed during this visit: yes Reason for continuing: Not indwelling catheter Insertion date: 12/21/18 Insertion time: 09:35 Results Labs CBC & Chem 7: 12/24/18 05:20 12/24/18 05:20 Assessment and Plan Plan 68-year-old female admitted secondary to weakness with finding of severe hypercalcemia Bone marrow biopsy pending. Calcium levels are showing stability off of IV fluids. Continue monitoring calcium levels. Severe hypercalcemia Suspected to be related to metastatic disease PTH within normal limits IV hydration Follow calcium levels Follow on telemetry Lytic lesions pelvis Lytic lesion at left femur Lytic lesions of scalp History of breast cancer New concerns for recurrence of breast cancer with metastasis Bone biopsy planned Patient was to follow-up with oncology as an outpatient Further workup needed Oncology consult Hyperlipidemia Hold present treatment Follow as an outpatient DVT prophylaxis SCDs Progress Note: Quality VTE Deep Vein Thrombosis/Pulmonary Embolism Present on Admission: No
[2018-12-25 06:26] LABS: Baso % (Auto) 0.1 % (0.0-2.0); Eos % (Auto) 0.3 % (0.0-4.0); Hematocrit 29.7 % (35.0-46.0); Hemoglobin 9.9 gm/dL (11.6-15.3); Lymph # (Auto) 0.6 th/mm3 (1.0-4.8); Lymph % (Auto) 6.7 % (9.0-44.0); Mean Corpuscular HGB Conc 33.2 % (32.0-36.0); Mean Corpuscular Hemoglobin 29.3 pg (27.0-34.0); Mean Corpuscular Volume 88.3 fL (80.0-100.0); Mean Platelet Volume 8.8 fL (7.0-11.0); Mono # (Auto) 0.5 th/mm3 (0.0-0.9); Mono % (Auto) 5.9 % (0.0-8.0); Neut # (Auto) 7.5 th/mm3 (1.8-7.7); Platelet Count 158 th/mm3 (150-450); Red Blood Count 3.36 mil/mm3 (4.00-5.30); Red Cell Distribution Width 13.7 % (11.6-17.2); White Blood Count 8.6 th/mm3 (4.0-11.0)
[2018-12-25 06:33] LABS: Chloride 103 meq/L (98-107); Potassium 3.5 meq/L (3.5-5.1); Sodium 140 meq/L (136-145)
[2018-12-25 06:40] LABS: Albumin 1.7 g/dL (3.4-5.0); Calcium 8.1 mg/dL (8.5-10.1)
[2018-12-25 06:41] LABS: Anion Gap 10 meq/L (5-15); Blood Urea Nitrogen 12 mg/dL (7-18); Carbon Dioxide 27.1 meq/L (21.0-32.0); Glucose,Random 91 mg/dL (74-106); Magnesium 1.9 mg/dL (1.5-2.5)
[2018-12-25 06:44] LABS: Alanine Aminotransferase 15 U/L (10-53); Aspartate Aminotransferase 37 U/L (15-37); Glomerular Filtration Rate Greater Than 89 mL/min (>89); Phosphorus 2.3 mg/dL (2.5-4.9)
[2018-12-25 06:45] LABS: Total Protein 4.9 g/dL (6.4-8.2)
[2018-12-25 06:47] LABS: Alkaline Phosphatase 127 U/L (45-117)
[2018-12-25] MEDS: Potassium Chloride 10 MEQ ER Capsule PO SCH ×2 (08:29→20:14)
[2018-12-25] MEDS ORDERED: fentaNYL Citrate Inj 100 MCG/2 ML Ampul IV.PUSH ONE (09:55)
--- NOTE | 2018-12-25 10:48 | CT ---
EXAM DATE: 12/25/2018 10:36 AM EST AGE/SEX: 68 years / Female INDICATIONS: Left femur mass. CLINICAL DATA: This is the patient's initial encounter. Patient reports that signs and symptoms have been present for 1 day and indicates a pain score of 0/10. MEDICAL/SURGICAL HISTORY: Carcinoma, breast. . Mastectomy. COMPARISON: . SEDATION TIME (min): 30 BIOPSY SITE: Left . femur MEDICATION(S): 3.5 mg midazolam (Versed) IV 100mcg fentanyl (Sublimaze) IV DEVICE(S): 11 gauge Bone marrow biopsy needle Two . . PROCEDURE: CT guided Left . femur biopsy Prior to the procedure informed consent was obtained. Any appropriate prior imaging studies were rev iewed. Using automated exposure control and adjustment of the mA and/or kV according to patient size, radiat ion dose was kept as low as reasonably achievable to obtain optimal diagnostic quality images. DICOM format image data is available electronically for review and comparison. The site was prepped in a sterile fashion. Full sterile technique was used, including cap, mask, kristin rile gloves and gown and a large sterile sheet. Hand hygiene and 2% chlorhexidine and/or betadine/al cohol prep was utilized per protocol for cutaneous antisepsis. The skin and subcutaneous tissues wer e infiltrated with local anesthetic solution. With CT guidance the previously identified target was localized. Biopsy was performed using the presc ribed needle as above. Adequate hemostasis was obtained with compression at the puncture site. Follow-up CT scan reveals no hemorrhage. The patient tolerated the procedure well and there were no complications. The patient was returned to the Radiology Outpatient Unit in stable condition. CONCLUSION: 1. Uncomplicated CT guided biopsy. Electronically signed by: Jonathan Aly MD Board Certified Radiologist 12/25/2018 10:47 AM EST
--- NOTE | 2018-12-25 10:51 | P.RAD ---
Post CT Procedure Prog Note - Pre Procedure Diagnosis (1) Hypercalcemia - Post Procedure Diagnosis (1) Hypercalcemia - Procedure Information Procedure Date: 12/25/18 Supervising Radiologist: Jonathan Aly MD Anesthesia: Conscious Sedation - Plan of Activity Patient to Unit: Nursing Unit Patient condition: Good See PACS Report for procedural detail/treatment. Biopsy CT left Bone Specimen: Core Biopsy
[2018-12-25] MEDS ORDERED: Lidocaine 1%/Epinephrine 1:100,000 Inj 20 ML Vial INFILTRATN ONE (11:00)
--- NOTE | 2018-12-25 11:21 | P.PNIM ---
Subjective Interval history: Follow-up severe hypercalcemia/lytic lesion to pelvics, left femur, scalp/history of breast cancer/rule out recurrent breast cancer with metastasis December 25, 2018patient seen and examined, currently n.p.o. and heading for bone marrow biopsy. Denies any significant generalized pain. Currently afebrile. Family by the bedside. Physical Exam Vital signs: Vital Signs 12/24/18 12:00 12/24/18 16:00 12/24/18 20:00 Temperature 99.1 F 96.8 F L 98.6 F Pulse Rate 90 85 98 H Respiratory Rate 20 20 18 Blood Pressure 147/70 H 132/67 115/65 Pulse Oximetry 95 94 L 93 L 12/25/18 00:00 12/25/18 08:00 Temperature 98.5 F 97.9 F Pulse Rate 91 H 90 Respiratory Rate 18 21 Blood Pressure 130/60 132/55 L Pulse Oximetry 94 L 95 Intake & Output 12/24/18 12/25/18 12/25/18 18:59 06:59 18:59 Intake Total 350 / 350 90 / 90 0 / 0 Output Total 450 / 450 400 / 400 Balance 350 / 350 -360 / -360 -400 / -400 Weight 60.5 kg Intake: Oral 350 / 350 90 / 90 0 / 0 Output: Urine 450 / 450 400 / 400 Other: # Voids 1 Date of Last Bowel Movement 12/25/18 Narrative: GENERAL: NAD, A&Ox3 HEAD: Normocephalic. NECK: Supple, trachea midline. No lymphadenopathy. EYES: No scleral icterus. No injection or drainage. CARDIOVASCULAR: Regular rate and rhythm without murmurs, gallops, or rubs. RESPIRATORY: Breath sounds equal bilaterally. No accessory muscle use. GASTROINTESTINAL: Abdomen soft, non-tender, nondistended. MUSCULOSKELETAL: No cyanosis, or edema. SKIN: Warm and dry. Nodularity at scalp. NEURO: No focal neurological deficits. Urinary Catheter Management Straight: Cath placed during this visit: yes Reason for continuing: Not indwelling catheter Insertion date: 12/21/18 Insertion time: 09:35 Results Labs CBC & Chem 7: 12/25/18 05:35 12/25/18 05:35 Imaging Imaging: Impressions Bone Biopsy CT 12/25/18 09:00 CONCLUSION: 1. Uncomplicated CT guided biopsy. Assessment and Plan Plan 68-year-old female with Severe hypercalcemia Suspected to be related to metastatic disease PTH within normal limits Continue with IV hydration Appreciate input from oncology Follow calcium levels Telemetry monitoring Lytic lesions pelvis Lytic lesion at left femur Lytic lesions of scalp History of breast cancer Concerns for recurrence of breast cancer with metastasis Plan for bone marrow biopsy today December 25, 2018 Appreciate input from oncology Hyperlipidemia Hold present treatment Follow as an outpatient DVT prophylaxis SCDs Progress Note: Quality VTE Deep Vein Thrombosis/Pulmonary Embolism Present on Admission: No
--- NOTE | 2018-12-25 18:05 | P.PNONC ---
Subjective Interval history: States she is feeling better. She is ambulating to the bathroom and back. She denies any pain at present. She has had her bone biopsy for diagnosis. Objective Vital Signs/Intake & Output: Vital Signs 12/24/18 20:00 12/25/18 00:00 12/25/18 08:00 Temperature 98.6 F 98.5 F 97.9 F Pulse Rate 98 H 91 H 90 Respiratory Rate 18 18 21 Blood Pressure 115/65 130/60 132/55 L Pulse Oximetry 93 L 94 L 95 12/25/18 10:37 12/25/18 10:52 12/25/18 11:07 Temperature 98.8 F Pulse Rate 95 H 88 90 Respiratory Rate 15 16 16 Blood Pressure 122/75 114/62 119/70 Pulse Oximetry 95 95 95 12/25/18 11:37 12/25/18 12:00 12/25/18 15:58 Temperature 98.9 F 99.0 F 99.5 F Pulse Rate 92 H 104 H 104 H Respiratory Rate 16 22 22 Blood Pressure 123/70 127/78 140/69 Pulse Oximetry 95 95 95 Intake & Output 12/24/18 12/25/18 12/25/18 18:59 06:59 18:59 Intake Total 350 / 350 90 / 90 120 / 120 Output Total 450 / 450 600 / 600 Balance 350 / 350 -360 / -360 -480 / -480 Weight 60.5 kg Intake: Oral 350 / 350 90 / 90 120 / 120 Output: Urine 450 / 450 600 / 600 Other: # Voids 1 Date of Last Bowel Movement 12/25/18 Result Diagrams: 12/25/18 05:35 12/25/18 05:35 Laboratory Results: Laboratory Results - last 24 hr 12/25/18 12/25/18 05:35 05:35 CBC w Diff Auto diff final WBC 8.6 RBC 3.36 L Hgb 9.9 L Hct 29.7 L MCV 88.3 MCH 29.3 MCHC 33.2 RDW 13.7 Plt Count 158 MPV 8.8 Neut % (Auto) 87.0 H Lymph % (Auto) 6.7 L [place] % (Auto) 5.9 Eos % (Auto) 0.3 Baso % (Auto) 0.1 Neut # (Auto) 7.5 Lymph # (Auto) 0.6 L [place] # (Auto) 0.5 Eos # (Auto) 0.0 Baso # (Auto) 0.0 WBC Differential . Differential Comment . Sodium 140 Potassium 3.5 Chloride 103 Carbon Dioxide 27.1 Anion Gap 10 BUN 12 Creatinine 0.28 L Estimated GFR Greater than 89 Random Glucose 91 Calcium 8.1 L Phosphorus 2.3 L Magnesium 1.9 Total Bilirubin 0.8 AST 37 ALT 15 Alkaline Phosphatase 127 H Total Protein 4.9 L Albumin 1.7 L Imaging Studies: Impressions Bone Biopsy CT 12/25/18 09:00 CONCLUSION: 1. Uncomplicated CT guided biopsy. Medications: Active Medications Generic Name Dose Route Start Last Admin Trade Name Freq PRN Reason Stop Dose Admin Sodium Chloride 1,000 mls @ 400 mls/hr 12/21/18 08:45 12/21/18 09:45 Ns Inj IV.CONT Infused .Q2H30M JESSICA Infusion Potassium Chloride 10 meq 12/22/18 21:00 12/25/18 08:29 Kcl PO 10 meq BID JESSICA Administration Sodium Chloride 2 ml 12/21/18 21:00 12/25/18 08:30 Ns Flush IV.FLUSH 2 ml BID JESSICA Administration Objective Remarks: GENERAL: Slender woman, cachectic, well-developed patient. SKIN: Warm and dry. HEAD: Normocephalic. EYES: No scleral icterus. No injection or drainage. NECK: Supple, trachea midline. No JVD or lymphadenopathy. LYMPHATIC: No adenopathy. CARDIOVASCULAR: Regular rate and rhythm without murmurs. RESPIRATORY: Breath sounds equal bilaterally. No accessory muscle use. GASTROINTESTINAL: Abdomen soft, non-tender, nondistended. EXTREMITIES: No cyanosis, right arm edema. MUSCULOSKELETAL: Adequate muscle tone. NEUROLOGICAL: No obvious focal deficit. Awake, alert, and oriented x3. PSYCHIATRIC: Appropriate mood and affect; insight and judgment normal. Assessment/Plan (1) History of left breast cancer Code(s): Z85.3 - Personal history of malignant neoplasm of breast Status: Chronic (2) Hypercalcemia Code(s): E83.52 - Hypercalcemia Status: Acute - Plan 68-year-old woman with history of left breast cancer status post left mastectomy , adjuvant systemic chemotherapy, radiation. She was on adjuvant hormonal therapy and followed by Dr. Kebede in the community for up to 10 years after her diagnosis. Her case was discussed with Dr. Kebede. She presented acutely symptomatic from hypocalcemia which is treated. She responded well. Her calcium is in the normal range. She had multiple bone lesions suspicious for metastatic breast cancer. Clinical exam is significant for nodules in the right residual breast. She is status post biopsy of tissue mass in the left femur. Final pathology is pending. We discussed follow-up on an outpatient basis at the with me or with Dr. Kebede. Further recommendation regarding treatment of underlying cancer depends on the pathology report. Recurrent or second primary breast cancer is suspected. She will need imaging study of the right breast on an outpatient basis. She may be discharged from oncology standpoint. Her renal function is normal. She tolerated the pamidronate well. Her calcium is trending down. Her questions were answered to her satisfaction.
[2018-12-26 02:53] VITALS: O2SAT 95
[2018-12-26] MEDS: Potassium Chloride 10 MEQ ER Capsule PO SCH ×2 (07:46→10:14)
[2018-12-26 08:23] VITALS: BP 138/80; PULSE 86; RESP 20; TEMP 96.2
--- NOTE | 2018-12-26 08:46 | P.PNIM ---
Subjective Interval history: Follow-up hypercalcemia/lytic lesion to pelvic, left femur/ history of breast cancer December 26, 2018 patient seen and examined, denies any significant pain. Calcium is now normalized. Patient is looking forward to go home. Physical Exam Vital signs: Vital Signs 12/25/18 10:37 12/25/18 10:52 12/25/18 11:07 Temperature 98.8 F Pulse Rate 95 H 88 90 Respiratory Rate 15 16 16 Blood Pressure 122/75 114/62 119/70 Pulse Oximetry 95 95 95 12/25/18 11:37 12/25/18 12:00 12/25/18 15:58 Temperature 98.9 F 99.0 F 99.5 F Pulse Rate 92 H 104 H 104 H Respiratory Rate 16 22 22 Blood Pressure 123/70 127/78 140/69 Pulse Oximetry 95 95 95 12/25/18 20:00 12/26/18 00:00 12/26/18 01:35 Temperature 99.0 F 98.7 F Pulse Rate 87 88 Respiratory Rate 18 18 Blood Pressure 122/58 L 144/74 H Pulse Oximetry 94 L 90 L 95 12/26/18 08:00 Temperature 96.2 F L Pulse Rate 86 Respiratory Rate 20 Blood Pressure 138/80 Pulse Oximetry 95 Intake & Output 12/25/18 12/26/18 12/26/18 18:59 06:59 18:59 Intake Total 120 / 120 Output Total 600 / 600 Balance -480 / -480 Weight 58.9 kg Intake: Oral 120 / 120 Output: Urine 600 / 600 Other: # Urine Diapers 2 Date of Last Bowel Movement 12/25/18 12/24/18 Narrative: GENERAL: NAD, A&Ox3 HEAD: Normocephalic. NECK: Supple, trachea midline. No lymphadenopathy. EYES: No scleral icterus. No injection or drainage. CARDIOVASCULAR: Regular rate and rhythm without murmurs, gallops, or rubs. RESPIRATORY: Breath sounds equal bilaterally. No accessory muscle use. GASTROINTESTINAL: Abdomen soft, non-tender, nondistended. MUSCULOSKELETAL: No cyanosis, or edema. SKIN: Warm and dry. Nodularity at scalp. NEURO: No focal neurological deficits. Urinary Catheter Management Straight: Cath placed during this visit: yes Reason for continuing: Not indwelling catheter Insertion date: 12/21/18 Insertion time: 09:35 Results Labs CBC & Chem 7: 12/25/18 05:35 12/25/18 05:35 Imaging Imaging: Impressions Bone Biopsy CT 12/25/18 09:00 CONCLUSION: 1. Uncomplicated CT guided biopsy. Assessment and Plan (1) History of left breast cancer: Code(s): Z85.3 - Personal history of malignant neoplasm of breast Status: Chronic (2) Hypercalcemia: Code(s): E83.52 - Hypercalcemia Status: Acute Plan 68-year-old female with Severe hypercalcemia-resolved Suspected to be related to metastatic disease PTH within normal limits Status post treatment with pamidronate Continue with IV hydration Appreciate input from oncology Follow calcium levels Telemetry monitoring Lytic lesions pelvis Lytic lesion at left femur Lytic lesions of scalp History of breast cancer Concerns for recurrence of breast cancer with metastasis s/p bone marrow biopsy December 25, 2018 pending pathology report Appreciate input from oncology Hyperlipidemia Hold present treatment Follow as an outpatient DVT prophylaxis SCDs Progress Note: Quality VTE Deep Vein Thrombosis/Pulmonary Embolism Present on Admission: No
--- NOTE | 2018-12-26 08:48 | P.DS ---
DS: Providers Date of admission: 12/21/18 10:13 Primary care physician: UNKNOWN Consults: 12/21/18 10:46 Consult to Oncology Routine Consulting Provider: Laurita Lares Reason for Consultation: Metastatic Breast Cancer (presumed), with lytic lesions at scalp, femur, pelvis. Admitted with Hypercalcemia. Notified:: Service Spoke with:: VEENA Date Notified:: 12/21/18 Time Notified:: 10:56 Ordering Provider: YUDI 12/22/18 14:04 HUB Only Consult Order Routine Consulting Provider: Drew Russell Brief History from admission: Mrs. Schmid is a 68-year-old female. She has come into the hospital secondary to an acute onset of weakness. Previously she had visited the hospital secondary to difficulty sleeping and weight loss. Lytic lesions were seen on imaging which are worrisome for metastatic disease. She has a prior history of breast cancer so recurrence of breast cancer with metastasis would be a primary concern. She describes weakness as lower extremity weakness. She was unable to hold her own weight up due to her muscle weakness and dysfunction. She denies any diarrhea. She denies fevers. She denies vomiting. No abdominal cramping. No complaints of joint pains or bone pain. Thus far no cardiac arrhythmia. No other complaints today. DS: Diagnosis Discharge Diagnosis (1) History of left breast cancer: Status: Chronic (2) Hypercalcemia: Status: Acute DS: Summary Patient presented and was admitted with acutely symptomatic from hypercalcemia which was treated with pamidronate and IV fluid hydration. Patient responded well, and her calciums normalized. Oncology was consulted and patient underwent bone marrow biopsy of tissue mass in the left femur on December 25, 2018. DVT prophylaxis were provided. Prior to discharge, patient's symptoms improved and vitals remained stable. She will follow outpatient with oncology for pathology report. Time Spent with Patient Total time spent providing and/or coordinating discharge services: Quality: VTE Deep Vein Thrombosis/Pulmonary Embolism Present on Admission: No Exam Narrative Exam Narrative: GENERAL: NAD SKIN: Warm and dry. HEAD: Atraumatic. Normocephalic. EYES: Pupils equal and round. No scleral icterus. No injection or drainage. ENT: No nasal bleeding or discharge. Mucous membranes pink and moist. NECK: Trachea midline. No JVD. CARDIOVASCULAR: Regular rate and rhythm. RESPIRATORY: No accessory muscle use. Clear to auscultation. Breath sounds equal bilaterally. GASTROINTESTINAL: Abdomen soft, non-tender, nondistended. Hepatic and splenic margins not palpable. MUSCULOSKELETAL: Extremities without clubbing, cyanosis, or edema. No obvious deformities. NEUROLOGICAL: Awake and alert. No obvious cranial nerve deficits. Motor grossly within normal limits. Five out of 5 muscle strength in the arms and legs. Normal speech. PSYCHIATRIC: Appropriate mood and affect; insight and judgment normal. Results Impressions ITS Impressions Chest CT 12/21/18 00:00 CONCLUSION: Right upper lobe mass concerning for malignancy and the left upper lobe nodule is nonspecific. Chest X-Ray 12/21/18 09:54 CONCLUSION: No new or significant changes with the overall appearance of the heart or lungs compared to the prior study. Bone Biopsy CT 12/25/18 09:00 CONCLUSION: 1. Uncomplicated CT guided biopsy. Discharge Plan Discharge Disposition Patient Disposition: 01 Discharge Home Discharge Condition Condition: Fair Discharge Order Discharge Orders: Discharge Order (Routine); Ordered 12/26/18 Ordered By: Андрей Savage Physicians Team ED Provider: Jared Felix Primary Care Provider: UNKNOWN, Attending Provider: Андрей Savage Other Providers: Laurita Lares ; [employer],Kenana Rxs /Orders / Referrals /Forms Prescriptions: Continue atorvastatin 10 mg Tablet 10 mg PO HS RF: 0 Referrals: Laurita Lares MD [Physician] - See Instructions UNKNOWN, [Primary Care Provider] - See Instructions Status ED Status: Left Department
== END 2018-12-26 10:21 | disposition home or self-care (01) | DRG 629 ==
LOC: PHED 07:44 → PHEDA 10:13 → PH3 10:45
PROVIDERS: ADMIT Hospitalist; ATTEND Hospitalist
DX: C79.51 Secondary malignant neoplasm of bone; Z92.21 Personal history of antineoplastic chemotherapy; E78.5 Hyperlipidemia, unspecified; Z17.0 Estrogen receptor positive status [ER+]; Z85.3 Personal history of malignant neoplasm of breast; R64 Cachexia; R63.4 Abnormal weight loss; Z92.3 Personal history of irradiation; Z68.21 Body mass index [BMI] 21.0-21.9, adult; E83.52 Hypercalcemia
CPT/HCPCS: 20225; 71010; 71045; 71250; 76360; 77012; 80053; 81001; 82040; 83735; 83970; 84100; 84132; 84484; 85025; 85610; 86300; 88305; 88307; 88311; 88341; 88342; 88343; 90760; 93005; 96360; 99145; 99152; 99153; 99285; G0461; G0462; J1940; J2250; J2430; J3010; J7030; J7040; P9612